=== PATIENT | female | born 1980 | race American Indian/Alaskan Native ===

== ENCOUNTER 2020-10-23 15:53 | Emergency (ER) | payer OTHER, MEDICAID ==
[2020-10-23] MEDS ORDERED: IBUPROFEN 800 MG TAB PO ONE (18:56)
[2020-10-23] MEDS ORDERED: ACETAMINOPHEN 325 MG TAB PO ONE (18:56)
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
[2020-10-23] MEDS ORDERED: TETANUS,DIPH,PERTUSS(ACELL) VACCINE 0.5 ML SYRINGE IM ONE (19:05)
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
[2020-10-23] MEDS ORDERED: LACTATED RINGERS 1,000 ML IV ONE (20:59)
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
[2020-10-23] MEDS ORDERED: HYDROmorphone 1 MG/1 ML INJ IV ONE (22:44)
[2020-10-23 22:52] VITALS: BP 176/89
== END 2020-10-23 22:53 | disposition other institution (70) ==
LOC: ED 15:53
DX: S32.402A Unspecified fracture of left acetabulum, initial encounter for closed fracture (principal); S33.5XXA Sprain of ligaments of lumbar spine, initial encounter; I10 Essential (primary) hypertension; F17.200 Nicotine dependence, unspecified, uncomplicated; Z88.8 Allergy status to other drugs, medicaments and biological substances; V49.59XA Passenger injured in collision with other motor vehicles in traffic accident, initial encounter; Y92.410 Unspecified street and highway as the place of occurrence of the external cause; Y93.89 Activity, other specified; Y99.8 Other external cause status
CPT/HCPCS: 72100; 73502; 96361; 96374; 99285; J1170; J7120; 90715